=== PATIENT | male | born 1955 | race African-American/Black ===

== ENCOUNTER 2018-02-11 11:34 | Inpatient (IN) ==
[2018-02-11] MEDS ORDERED: ONDANSETRON 4 MG/2 ML VIAL IV STA (11:48)
[2018-02-11] MEDS ORDERED: SODIUM CHLORIDE 0.9% 2,000 ML IV STA (11:48)
[2018-02-11] MEDS ORDERED: INSULIN REGULAR 100 UNIT/ML IV STA (11:48)
[2018-02-11] MEDS ORDERED: LEVOFLOXACIN INJ 750 MG in PREMIX 1 EACH IV STA (11:48)
[2018-02-11] MEDS ORDERED: PANTOPRAZOLE 40 MG VIAL IV STA (11:52)
[2018-02-11 13:02] LABS: Basophils % 0.2 % (0.0-0.8); Hematocrit 47.4 VOL% (42.0-52.0); Hemoglobin 16.1 GM/DL (14.0-18.0); Immature Granulocytes % 0.4 %; Immature Granulocytes Absolute 0.08 #; Lymphocytes % 5.3 % (21.2-54.2); Mean Corpuscular Hemoglobin 32 PG (27-34); Mean Corpuscular Volume 92.9 FL (87-102); Mean Platelet Volume 10.2 FL (9.6-12.0); Monocytes # 0.2 10*3/uL (0.11-0.8); Monocytes % 1.3 % (1.7-12.7); Neutrophils # 17.6 10*3/uL (1.4-7.4); Neutrophils % 92.8 % (38.7-73.9); Platelet Count 300 T/CUMM (130-400); Red Cell Distribution Width 12.8 % (9.3-17.3)
[2018-02-11 13:18] LABS: Lactic Acid 2.4 MMOL/L (0.4-2.0)
[2018-02-11 13:28] LABS: Alanine Aminotransferase 30 U/L (16-61); Alkaline Phosphatase 171 U/L (45-117); Amylase 186 U/L (25-115); Aspartate Amino Transferase 15 U/L (0-37); Blood Urea Nitrogen 45 MG/DL (7-18); Calcium 9.6 MG/DL (8.5-10.1); Glucose 491 MG/DL (74-106); Osmolality,Calculated 314.3 MOS/KG (273-304); Potassium 3.8 MMOL/L (3.5-5.1); Sodium 141 MMOL/L (136-145); Total Protein 9.4 G/DL (6.4-8.3)
[2018-02-11 13:47] LABS: Apearance,Urine CLEAR (Clear); Bilirubin,Urine Negative (Negative); Blood, Urine Moderate mg/dL (Negative); Glucose,Urine (UA) >=500 mg/dL (Negative); Hyaline Casts,Urine 1 /LPF (0-3); Ketones,Urine 80 mg/dL (Negative); Nitrite,Urine Negative (Negative); Protein,Urine Negative; RBC,Urine <1 /HPF (0-4); Urine Color Yellow (Yellow); Urine Specific Gravity 1.026 (1.001-1.035); Urine Urobilinogen < 2.0 EU/DL (0.2-1.0); WBC,Urine <1 /HPF (0-6)
[2018-02-11 13:55] LABS: Barbiturates Screen,Urine Negative (Negative); Benzodiazepines Screen,Urine Negative (Negative); Cannabinoid Screen,Urine Negative (Negative); Opiate Screen,Urine Negative (Negative); Phencyclidine Screen,Urine Negative (Negative)
[2018-02-11] MEDS ORDERED: MAGNESIUM SULF RIDER 2 GM in PREMIX 1 EACH IV PRN (14:05)
[2018-02-11] MEDS ORDERED: INSULIN REGULAR 100 UNIT/ML IV ONE ×2 (14:05→19:58)
[2018-02-11] MEDS ORDERED: SODIUM PHOSPHATE INJ 16.8 MMOL in SODIUM CHLORIDE 0.9% 250 ML IV PRN (14:05)
[2018-02-11] MEDS ORDERED: SODIUM BICARB INJ 100 MEQ in STERILE WATER INJ 400 ML IV PRN (14:05)
[2018-02-11] MEDS ORDERED: DEXTROSE 50% 25 GM/50 ML VIAL IV PRN ×2 (14:05)
[2018-02-11] MEDS ORDERED: MAGNESIUM SULF RIDER 4 GM in PREMIX 1 EACH IV PRN (14:05)
[2018-02-11] MEDS ORDERED: ALBUTEROL 2.5 MG/3 ML NEB RESP TX PRN (14:10)
[2018-02-11] MEDS ORDERED: INSULIN REGULAR DRIP 100 ML IV SCH (15:30)
[2018-02-11 16:09] LABS: ABG Base Excess 0.1 MMOL/L (-2.5-2.5); ABG HCO3 23.9 MMOL/L (20-26); ABG PCO2 36.4 MM HG (35-48); ABG PH 7.436 (7.35-7.45); ABG PO2 111.1 MM HG (80-95); ABG TCO2 25.1 MMOL/L (23-27)
[2018-02-11] MEDS: SODIUM CHLORIDE 0.9% 1,000 ML IV SCH ×2 (16:11→17:50)
[2018-02-11 16:55] LABS: Calcium 8.3 MG/DL (8.5-10.1); Osmolality,Calculated 316.3 MOS/KG (273-304); Potassium 4.2 MMOL/L (3.5-5.1)
[2018-02-11 16:56] LABS: Band Neutrophils 8 % (0-10); Lymphocytes 4 % (20-55); Platelet Estimate Normal; Segmented Neutrophils 86 % (50-85); Total Cells Counted 100
[2018-02-11] MEDS: BENZOCAINE/MENTHOL LOZENGE 18/BOX PO PRN ×2 (17:57→22:00)
[2018-02-11] MEDS ORDERED: SODIUM CHLORIDE 0.9% 1,000 ML IV SCH (19:05)
[2018-02-11] MEDS: INSULIN GLARGINE 100 UNIT/ML SUBCUT SCH ×2 (20:09→21:01)
[2018-02-11 21:03] LABS: Calcium 7.8 MG/DL (8.5-10.1); Potassium 4.1 MMOL/L (3.5-5.1)
[2018-02-11] MEDS: INSULIN REGULAR 100 UNIT/ML SUBCUT SCH (21:43)
[2018-02-11 23:28] LABS: Calcium 8.2 MG/DL (8.5-10.1); Osmolality,Calculated 309.7 MOS/KG (273-304)
[2018-02-12] MEDS: SODIUM CHLORIDE 0.45% 1,000 ML IV SCH ×2 (00:19→08:33)
[2018-02-12 04:53] LABS: Basophils % 0.1 % (0.0-0.8); Eosinophils % 0.1 % (0.00-10.9); Hemoglobin 13.4 GM/DL (14.0-18.0); Immature Granulocytes % 0.4 %; Immature Granulocytes Absolute 0.06 #; Lymphocytes # 1.2 10*3/uL (1.4-4.0); Lymphocytes % 8.1 % (21.2-54.2); Mean Corpuscular HGB Conc 33.5 GM/DL (32-36); Mean Corpuscular Hemoglobin 32 PG (27-34); Mean Corpuscular Volume 94.1 FL (87-102); Mean Platelet Volume 9.9 FL (9.6-12.0); Monocytes # 0.9 10*3/uL (0.11-0.8); Neutrophils # 12.6 10*3/uL (1.4-7.4); Neutrophils % 85.3 % (38.7-73.9); Platelet Count 212 T/CUMM (130-400); Red Blood Count 4.25 MC/CUMM (3.8-5.5); Red Cell Distribution Width 12.8 % (9.3-17.3); White Blood Count 14.8 T/CUMM (4-12)
[2018-02-12 05:24] LABS: Calcium 8.4 MG/DL (8.5-10.1); Potassium 3.8 MMOL/L (3.5-5.1)
[2018-02-12] MEDS: POTASSIUM CHLORIDE RIDER 10 MEQ in PREMIX 1 EACH IV PRN ×2 (06:34→07:36)
[2018-02-12] MEDS: INSULIN REGULAR 100 UNIT/ML SUBCUT SCH ×4 (07:29→20:35)
[2018-02-12 08:46] LABS: Calcium 8.3 MG/DL (8.5-10.1); Potassium 4.1 MMOL/L (3.5-5.1)
[2018-02-12] MEDS: amLODIPine 5 MG TABLET PO SCH (10:34)
[2018-02-12] MEDS: AMOXICILLIN 875 MG TABLET PO SCH ×2 (10:34→20:31)
[2018-02-12 11:02] LABS: Calcium 8.2 MG/DL (8.5-10.1); Osmolality,Calculated 296.6 MOS/KG (273-304); Potassium 3.8 MMOL/L (3.5-5.1)
[2018-02-12] MEDS: INSULIN GLARGINE 100 UNIT/ML SUBCUT SCH ×2 (13:52→20:33)
[2018-02-12] MEDS: GABAPENTIN 600 MG TABLET PO SCH (15:53)
[2018-02-12] MEDS: INSULIN LISPRO 100 UNIT/ML SUBCUT SCH (17:47)
[2018-02-12] MEDS ORDERED: PRAVASTATIN 40 MG TABLET PO SCH (21:00)
[2018-02-13] MEDS: INSULIN REGULAR 100 UNIT/ML SUBCUT SCH (07:25)
[2018-02-13] MEDS: BENZOCAINE/MENTHOL LOZENGE 18/BOX PO PRN (07:26)
[2018-02-13 07:45] VITALS: BP 134/65
[2018-02-13] MEDS: INSULIN GLARGINE 100 UNIT/ML SUBCUT SCH (08:23)
[2018-02-13] MEDS: INSULIN LISPRO 100 UNIT/ML SUBCUT SCH (08:23)
[2018-02-13] MEDS: amLODIPine 5 MG TABLET PO SCH (08:23)
[2018-02-13] MEDS: GABAPENTIN 600 MG TABLET PO SCH (08:23)
[2018-02-13] MEDS: AMOXICILLIN 875 MG TABLET PO SCH (08:35)
== END 2018-02-13 11:55 | disposition home or self-care (01) | DRG 638 ==
LOC: N.ED 11:34 → N.EDINP 13:43 → N.ICU 15:16 → N.2E 02-12 13:57
PROVIDERS: ADMIT Internal Medicine; ATTEND Internal Medicine

== ENCOUNTER 2020-07-05 15:14 | Inpatient (IN) ==
[2020-07-05] MEDS ORDERED: VANCOMYCIN INJ 1,000 MG in SODIUM CHLORIDE 0.9% 250 ML IV ONE (16:00)
[2020-07-05] MEDS ORDERED: VANCOMYCIN 1,000 MG VIAL ONE (16:34)
[2020-07-05] MEDS: LACTATED RINGERS 1,000 ML IV SCH (16:36)
[2020-07-05] MEDS ORDERED: LIDOCAINE 1% 20 ML VIAL ONE (17:04)
[2020-07-05] MEDS ORDERED: BUPIVACAINE MPF 0.25% 30 ML VIAL ONE (17:04)
[2020-07-05] MEDS ORDERED: HYDROmorphone 2 MG/1 ML VIAL IV PRN (17:29)
[2020-07-05] MEDS ORDERED: ONDANSETRON 4 MG/2 ML VIAL IV PRN (17:29)
[2020-07-05] MEDS ORDERED: GLUCAGON 1 MG VIAL IM PRN (17:29)
[2020-07-05] MEDS ORDERED: DEXTROSE 50% 25 GM/50 ML VIAL IV PRN (17:29)
[2020-07-05] MEDS ORDERED: ACETAMINOPHEN 325 MG TABLET PO PRN (17:29)
[2020-07-05] MEDS ORDERED: ONDANSETRON 4 MG/2 ML VIAL ONE (18:28)
[2020-07-05] MEDS ORDERED: propofoL 200 MG/20 ML VIAL IV ONE (18:28)
[2020-07-05] MEDS ORDERED: SEVOFLURANE 1 UNIT/15 MINUTE INH ONE (18:28)
[2020-07-05] MEDS ORDERED: fentaNYL 100 MCG/2 ML VIAL ONE (18:28)
[2020-07-05] MEDS ORDERED: LIDOCAINE 2% 5 ML VIAL ONE (18:28)
[2020-07-05] MEDS: PIPERACILLIN/TAZOBACTAM 3,375 MG in SODIUM CHLORIDE 0.9% 100 ML IV SCH (18:30)
[2020-07-05] MEDS ORDERED: INFLUENZA VIRUS VACCINE 0.5 ML SYRINGE IM ONE (18:43)
[2020-07-05 19:40] LABS: Basophils % 0.3 % (0.0-0.8); Eosinophils # 0.4 10*3/uL (0.0-0.87); Hematocrit 39.9 VOL% (42.0-52.0); Hemoglobin 13.4 GM/DL (14.0-18.0); Immature Granulocytes % 0.5 %; Immature Granulocytes Absolute 0.05 #; Lymphocytes # 1.3 10*3/uL (1.4-4.0); Lymphocytes % 13.5 % (21.2-54.2); Mean Corpuscular HGB Conc 33.6 GM/DL (32-36); Mean Corpuscular Volume 94.1 FL (87-102); Mean Platelet Volume 8.9 FL (9.6-12.0); Monocytes % 7.5 % (1.7-12.7); Neutrophils % 74.2 % (38.7-73.9); Platelet Count 320 T/CUMM (130-400); Red Blood Count 4.24 MC/CUMM (3.8-5.5); White Blood Count 9.6 T/CUMM (4-12)
[2020-07-05 19:45] LABS: Osmolality,Calculated 280.4 MOS/KG (273-304)
[2020-07-05] MEDS: INSULIN REGULAR 100 UNIT/ML SUBCUT SCH (21:06)
[2020-07-06] MEDS: PIPERACILLIN/TAZOBACTAM 3,375 MG in SODIUM CHLORIDE 0.9% 100 ML IV SCH ×3 (00:43→17:41)
[2020-07-06] MEDS: VANCOMYCIN INJ 1,000 MG in SODIUM CHLORIDE 0.9% 250 ML IV SCH ×2 (05:36→21:34)
[2020-07-06 05:40] LABS: Basophils % 0.4 % (0.0-0.8); Eosinophils # 0.5 10*3/uL (0.0-0.87); Eosinophils % 5.4 % (0.00-10.9); Immature Granulocytes % 0.4 %; Immature Granulocytes Absolute 0.03 #; Lymphocytes # 1.9 10*3/uL (1.4-4.0); Lymphocytes % 22.1 % (21.2-54.2); Mean Corpuscular HGB Conc 33.8 GM/DL (32-36); Mean Platelet Volume 9.1 FL (9.6-12.0); Monocytes % 8.3 % (1.7-12.7); Neutrophils % 63.4 % (38.7-73.9); Platelet Count 326 T/CUMM (130-400); Red Blood Count 3.37 MC/CUMM (3.8-5.5); Red Cell Distribution Width 11.9 % (9.3-17.3); White Blood Count 8.5 T/CUMM (4-12)
[2020-07-06 05:41] LABS: Hemoglobin 10.8 GM/DL (14.0-18.0)
[2020-07-06 05:46] LABS: Calcium 8.4 MG/DL (8.5-10.1); Osmolality,Calculated 285.5 MOS/KG (273-304)
[2020-07-06] MEDS: PANTOPRAZOLE 40 MG TABLET PO SCH (08:49)
[2020-07-06] MEDS: INSULIN REGULAR 100 UNIT/ML SUBCUT SCH ×4 (08:50→21:30)
[2020-07-06] MEDS: INSULIN LISPRO 100 UNIT/ML SUBCUT SCH ×2 (12:26→17:42)
[2020-07-06] MEDS: ENOXAPARIN 40 MG/0.4 ML SYRINGE SUBCUT SCH (12:29)
[2020-07-06] MEDS: LACTATED RINGERS 1,000 ML IV SCH ×2 (17:00→22:38)
[2020-07-06] MEDS ORDERED: GABAPENTIN 600 MG TABLET PO SCH (21:00)
[2020-07-06] MEDS ORDERED: INSULIN GLARGINE 100 UNIT/ML SUBCUT SCH (21:00)
[2020-07-07] MEDS: PIPERACILLIN/TAZOBACTAM 3,375 MG in SODIUM CHLORIDE 0.9% 100 ML IV SCH ×3 (01:51→17:30)
[2020-07-07] MEDS: VANCOMYCIN INJ 1,000 MG in SODIUM CHLORIDE 0.9% 250 ML IV SCH (06:59)
[2020-07-07] MEDS ORDERED: lisinopriL 5 MG TABLET PO SCH (09:00)
[2020-07-07] MEDS ORDERED: SIMVASTATIN 20 MG TABLET PO SCH (09:00)
[2020-07-07] MEDS: PANTOPRAZOLE 40 MG TABLET PO SCH (09:10)
[2020-07-07] MEDS: INSULIN REGULAR 100 UNIT/ML SUBCUT SCH ×3 (11:30→17:13)
[2020-07-07] MEDS: INSULIN LISPRO 100 UNIT/ML SUBCUT SCH ×3 (12:00→17:14)
[2020-07-07] MEDS: ENOXAPARIN 40 MG/0.4 ML SYRINGE SUBCUT SCH (12:27)
[2020-07-07 17:21] VITALS: BP 145/83
== END 2020-07-07 17:40 | disposition home health service (06) | DRG 240 ==
LOC: N.OR 15:14 → N.SDSINP 15:20 → N.3E 17:29
PROVIDERS: ADMIT Student in an Organized Health Care Education/Training Program; ATTEND Student in an Organized Health Care Education/Training Program